=== PATIENT | female | born 1945 | race Caucasian/White ===

== ENCOUNTER 2016-04-14 06:04 | Inpatient (IN) | payer OTHER, MEDICARE ==
[~2016-04-14] VITALS: Ht 149.9 cm; Wt 94.1 kg
[~2016-04-14 06:04] MED LIST: AMLO5TAB2 PO; ATOR40TA16 PO; BENA40TA PO; CHOL5000 PO; CO Q100C9 PO; CYCL1TAB29 PO; HYDR25TA5 PO; METO50TA PO; MOBI15TA PO; OMEP20TA PO; OXYB5TAB10 PO; TRAM50TA PO
[2016-04-14] MEDS ORDERED: METOPROLOL TARTRATE 25 MG TAB PO PRN (06:30)
[2016-04-14] MEDS: LACTATED RINGER'S 1000 ML IV SCH ×2 (06:30→07:42)
[2016-04-14] MEDS ORDERED: INSULIN HUMAN REGULAR 1,000 UNITS/10 ML VIAL SQ PRN (06:30)
[2016-04-14] MEDS ORDERED: ceFAZolin 1,000 MG/NS 100 ML IV SCH ×2 (06:45)
[2016-04-14 06:49] VITALS: BP 139/70; PULSE 79; RESP 18; TEMP 98.1; O2SAT 99
[2016-04-14] MEDS ORDERED: ACETAMINOPHEN 1000 MG/100 ML VIAL IV ONE (07:28)
[2016-04-14] MEDS ORDERED: MIDAZOLAM HCL 2 MG/2 ML VIAL ONE ×2 (07:28→08:15)
[2016-04-14] MEDS ORDERED: HYDROmorphone HCL PF 2 MG/ML VIAL ONE (07:29)
[2016-04-14] MEDS ORDERED: fentaNYL CITRATE 250 MCG/5 ML AMP ONE (07:29)
[2016-04-14] MEDS ORDERED: LIDOCAINE 1%/EPINEPHrine 1:100,000 SOLN 30 ML VIAL ONE (08:06)
[2016-04-14] MEDS ORDERED: THROMBIN (TOPICAL) 5,000 UNIT VIAL ONE (08:06)
[2016-04-14] MEDS ORDERED: GENTAMICIN SULFATE 80 MG/2 ML VIAL ONE (08:06)
[2016-04-14] MEDS ORDERED: GELFOAM SIZE 100 ONE (08:06)
[2016-04-14] MEDS ORDERED: FAMOTIDINE 20 MG/2 ML VIAL ONE (08:07)
[2016-04-14] MEDS ORDERED: APREPITANT 40 MG CAP ONE (08:07)
[2016-04-14] MEDS ORDERED: METOCLOPRAMIDE HCL 10 MG/2 ML VIAL ONE (08:16)
[2016-04-14] MEDS ORDERED: SODIUM CHLORID 0.9% 500 ML IV SCH (08:30)
[2016-04-14] MEDS ORDERED: ceFAZolin INJ 1,000 MG VIAL IV ONE (11:45)
[2016-04-14] MEDS ORDERED: PROPOFOL 200 MG/20 ML AMP IV ONE (12:00)
[2016-04-14] MEDS ORDERED: ONDANSETRON HCL 4 MG/2 ML VIAL IV PUSH ONE (12:00)
[2016-04-14] MEDS ORDERED: SODIUM CHLOR 0.9% 1000 ML INJ 1,000 ML IV ONE (12:00)
[2016-04-14] MEDS ORDERED: PHENYLEPH/NS 1000 MCG/10 ML SYR IV ONE (12:00)
[2016-04-14] MEDS ORDERED: NEOSTIGMINE 3 MG/3 ML SYR IV ONE (12:00)
--- NOTE | 2016-04-14 14:10 | RADRPT ---
EXAM DATE/TIME: 04/14/2016 08:51 [place] COMPARISON: No previous studies available for comparison. INDICATIONS : Cervical fusion, C3-6. MEDICAL HISTORY : Unobtainable. SURGICAL HISTORY : Unobtainable. ENCOUNTER: Initial ACUITY: 1 day PAIN SCORE: Non-responsive. LOCATION: Neck. FINDINGS: A single lateral view of the cervical spine was performed. An anterior cervical fixation plate has be en placed from what appears to be C3-C6. CONCLUSION: Anterior cervical fusion plate with what appears to be from C3-C6 Tramaine Coello MD on April 14, 2016 at 14:08 Board Certified Radiologist. This report was verified electronically.
[2016-04-14] MEDS ORDERED: DO NOT ADM ANY ANTICOAGULANT DRUGS XX PRN (14:30)
[2016-04-14] MEDS ORDERED: SODIUM CHLORIDE 0.9% FLUSH 5 ML FLUSH IVF PRN (14:30)
[2016-04-14] MEDS ORDERED: NALOXONE HCL 0.4 MG/ML AMP IV PRN ×2 (14:30→15:15)
[2016-04-14] MEDS ORDERED: traMADol HCL 50 MG TAB PO PRN (14:30)
[2016-04-14] MEDS ORDERED: HYDROmorphone HCL PF 1 MG/ML VIAL IV PRN (15:15)
[2016-04-14] MEDS ORDERED: MORPHINE SULFATE 4 MG/ML INJ IV PRN (15:15)
[2016-04-14] MEDS ORDERED: HYDROmorphone HCL 2 MG TAB PO PRN (15:15)
[2016-04-14] MEDS: D5-1/2 NS + KCL 20 MEQ INJ 1,000 ML IV SCH (15:15)
[2016-04-14] MEDS ORDERED: DIMETHICONE/OXYBENZONE/PADMIATE LIP BALM 4.25 GM ONE (17:04)
[2016-04-14 17:30] VITALS: BP 130/73; PULSE 93; RESP 19; TEMP 95.8; O2SAT 95
[2016-04-14] MEDS: CYCLOBENZAPRINE HCL 10 MG TAB PO SCH (18:00)
--- NOTE | 2016-04-14 18:11 | PD.OP ---
Operative Report Date of Surgery: Apr 14, 2016 Preoperative Diagnosis: (1) Cervical spinal stenosis (2) Cervical disc disease with myelopathy 1. Cervical spondylosis and degenerative disc disease 2. Severe cervical stenosis 3. cervical myelopathy Postoperative Diagnosis: (1) Cervical spinal stenosis (2) Cervical disc disease with myelopathy 1. Cervical spondylosis and degenerative disc disease 2. Severe cervical stenosis 3. cervical myelopathy Procedure: 1. C3 4, C4 5, C5 6 anterior cervical discectomy, resection posterior osteophyte disc complex, bilateral foraminotomy-microtechnique 2. C3 4, C4 5, C5 6 anterior cervical interbody fusion, composite allograft bone 3. C3-C6 anterior cervical instrumentation Anesthesia: Gen. endotracheal anesthesia Surgeon: Mark Darden Sawmill Worker(s): Yuli Dickerson Operation and Findings: Findings: Severe posterior osseous disc complex with bilateral foraminal stenosis at the C3 4, C4 5, C5 6 levels. Mild C3-4 retrolisthesis. Procedure in detail: The patient was brought into the operating room and positioned in supine position on the 3080 table with the head and neck in neutral position. Perez catheter was placed. Lines were established by Anesthesia. Gen. endotracheal anesthesia was induced without difficulty, taking care not to significantly flex or extend the patient's neck during intubation and positioning. Leads for intraoperative neuro monitoring were placed and a baseline study obtained. All extremities were appropriately padded. The neck and upper chest were shaved with clippers and sterilely prepped and draped. Appropriate time-out procedure was performed with all personnel present and in agreement 1% Xylocaine with epinephrine was used for local infiltration over the incision site which was made transversely at the left C5 level and carried sharply down through the platysma muscle. The exposure was continued medial to the sternocleidomastoid muscle and carotid artery, and lateral to the trachea and esophagus. The prevertebral fascia was elevated away from the anterior longitudinal ligament with a Kitner sponge. The longus coli muscle on each side was elevated with the Alicia elevator. The self-retaining retractor was placed with the blades beneath the longus coli muscle on each side. The appropriate levels were confirmed with intraoperative C-arm and preoperative imaging studies. The microscope was brought into place and used for the remainder of the procedure including the closure. The procedure was performed sequentially at the C3 4, C4 5, then C5 6 levels. The 14 mm distraction pins were used as needed for gentle distraction during the procedure. At each level the anterior osteophyte was resected with the Leksell rongeur. The disc and annulus was incised with a 15 blade knife and discectomy performed with pituitary biopsy forceps and straight and angled curettes. The TPS drill with the 5 mm barrel bur was used to decorticate the endplates and removed the majority of the osteophyte along the anterior spinal canal as well as the right and left uncovertebral joint. The thin ligament dissector was used to free up the posterior annulus and ligament from the vertebral body margin. The remainder of the resection of the posterior annulus and ligament as well as the posterior osteophyte and bilateral uncovertebral joint was performed with the 2 and 3 mm thin footplate Kerrison rongeurs. Significant posterior osteophyte was encountered and extensively removed at each level The posterior vertebral bodies were undercut with the Kerrison rongeur and the TPS drill with the 4 mm jami bur as needed to fully decompress the anterior spinal canal. The appropriate size V G2 bone graft was then placed at each level with a good fit of the graft. The blunt nerve hook was used to probe beneath the bone graft to ensure that there was no impingement on the thecal sac or exiting nerve roots. The appropriate size Precision anterior cervical plate was then chosen and the bone screws were placed with the 14 mm fixed screws at the caudal most level and the 14 mm variable screws at the cephalad level of the decompression. In order to help reduce the subluxation at the C3 4 level, a single 14 mm variable angled screw secured to the C4 vertebral body. The screws were firmly secured and the locking cams engaged. The entire construct was checked with intraoperative C-arm and felt to be satisfactory. The 10 [place] drain was brought out through a small incision in the left lower neck and secured to the skin with nylon suture and attached to sterile suction. The closure was performed with 3-0 Vicryl running for the platysma and interrupted for the subcutaneous closure, with 4-0 Vicryl running for the subcuticular closure. A dressing of sterile Mastisol, Steri-Strips, and Primapore dressing was placed. The patient was placed into a cervical collar, and taken to recovery room in stable condition. All counts were correct at the end of the case. Estimated blood loss was 400 cc. No specimen was sent to pathology. Intraoperative neuro monitoring remained stable during the procedure. Mark Darden MD Apr 14, 2016 18:11
[2016-04-14 18:44] VITALS: O2SAT 95
[2016-04-14 20:00] VITALS: BP 141/75; PULSE 98; RESP 18; TEMP 96.6; O2SAT 94
[2016-04-14] MEDS: SODIUM CHLORIDE 0.9% FLUSH 5 ML FLUSH IVF SCH (20:24)
[2016-04-14] MEDS: METOPROLOL TARTRATE 50 MG TAB PO SCH (20:24)
[2016-04-14] MEDS: OXYBUTYNIN CHLORIDE 5 MG TAB PO SCH (20:24)
[2016-04-14] MEDS ORDERED: PROMETHAZINE INJ 25 MG/ML VIAL IM PRN (20:30)
[2016-04-14] MEDS: DOCUSATE SODIUM 100 MG CAP PO SCH (20:57)
[2016-04-14] MEDS: ONDANSETRON HCL 4 MG/2 ML VIAL IV PRN (20:57)
[2016-04-14] MEDS: traMADol HCL 50 MG TAB PO PRN (23:34)
[2016-04-15] VITALS (7 sets, daily range): BP systolic 108–163; BP diastolic 67–84; PULSE 74–114; RESP 16–19; TEMP 96.9–98.8; O2SAT 95–98
[2016-04-15] MEDS: CYCLOBENZAPRINE HCL 10 MG TAB PO SCH ×3 (01:37→16:26)
[2016-04-15] MEDS: D5-1/2 NS + KCL 20 MEQ INJ 1,000 ML IV SCH (01:37)
[2016-04-15] MEDS: traMADol HCL 50 MG TAB PO PRN ×4 (03:34→23:41)
[2016-04-15] MEDS: METOPROLOL TARTRATE 50 MG TAB PO SCH ×2 (04:54→20:39)
[2016-04-15] MEDS: ONDANSETRON HCL 4 MG/2 ML VIAL IV PRN (04:57)
[2016-04-15 07:12] LABS: AUTOMATED NEUTROPHIL # 11.3 TH/MM3 (1.8-7.7); BASOPHIL # 0.1 TH/MM3 (0-0.2); BASOPHIL % 0.9 % (0.0-2.0); EOSINOPHIL # 0.1 TH/MM3 (0-0.4); EOSINOPHIL % 0.4 % (0.0-4.0); HEMATOCRIT 34.5 % (35.0-46.0); HEMO FLAGS DIFF FINAL; LYMPH % 9.6 % (9.0-44.0); LYMPHOCYTE # 1.3 TH/MM3 (1.0-4.8); MEAN CELL VOLUME 81.6 FL (80.0-100.0); MEAN CORPUSCULAR HEMOGLOBIN 27.2 PG (27.0-34.0); MEAN CORPUSCULAR HGB CONC 33.3 % (32.0-36.0); MONO % 6.9 % (0.0-8.0); NEUT % 82.2 % (16.0-70.0); PLATELET COUNT 279 TH/MM3 (150-450); RED BLOOD COUNT 4.23 MIL/MM3 (4.00-5.30); RED CELL DISTRIBUTION WIDTH 14.7 % (11.6-17.2); WHITE BLOOD COUNT 13.8 TH/MM3 (4.0-11.0)
[2016-04-15 07:18] LABS: BICARBONATE 26.1 MEQ/L (21.0-32.0); POTASSIUM 3.6 MEQ/L (3.5-5.1)
[2016-04-15] MEDS ORDERED: NON-FORMULARY DRUG (Coenzyme Q10 (Ubidecarenone) (Co Q 10) 1 CAP) PO SCH (09:00)
[2016-04-15] MEDS ORDERED: PNEUMOCOCCAL POLYVALENT INJ 25 MCG/0.5 ML SYR IM ONE (09:00)
[2016-04-15] MEDS: LISINOPRIL 20 MG TAB PO SCH (09:44)
[2016-04-15] MEDS: DOCUSATE SODIUM 100 MG CAP PO SCH ×2 (09:45→20:39)
[2016-04-15] MEDS: OXYBUTYNIN CHLORIDE 5 MG TAB PO SCH ×2 (09:46→20:39)
[2016-04-15] MEDS: CHOLECALCIFEROL (VIT D3) 5000 UNIT CAP PO SCH (09:46)
[2016-04-15] MEDS: HYDROCHLOROTHIAZIDE 25 MG TAB PO SCH (09:47)
[2016-04-15] MEDS: PANTOPRAZOLE SOD 20 MG DELAYED RELEASE TAB PO SCH (09:57)
[2016-04-15] MEDS: DEXAMETHASONE SOD PHOS 4 MG/ML VIAL IV PUSH SCH ×2 (19:46→23:40)
[2016-04-15] MEDS: 1/2 NS + KCL 20 MEQ INJ 1,000 ML IV SCH (19:46)
[2016-04-15] MEDS: SODIUM CHLORIDE 0.9% FLUSH 5 ML FLUSH IVF SCH (20:39)
[2016-04-16] VITALS: BP 136/66; PULSE 71; RESP 16; TEMP 96.4; O2SAT 96
[2016-04-16] MEDS: CYCLOBENZAPRINE HCL 10 MG TAB PO SCH ×2 (02:00→09:10)
[2016-04-16] MEDS: DEXAMETHASONE SOD PHOS 4 MG/ML VIAL IV PUSH SCH ×2 (05:49→12:40)
[2016-04-16] MEDS: traMADol HCL 50 MG TAB PO PRN ×2 (05:49→12:40)
[2016-04-16] MEDS: 1/2 NS + KCL 20 MEQ INJ 1,000 ML IV SCH (05:50)
[2016-04-16 07:30] VITALS: BP 133/72; PULSE 106; RESP 18; TEMP 97.2; O2SAT 95
--- NOTE | 2016-04-16 08:39 | HHI.NSPN ---
History Chief Complaint: difficulty swallowing Interval History 3 level ACDF 04/14/16 for cervical myelopathy Exam Results Vital Signs Date Time Temp Pulse Resp B/P Pulse Ox O2 Delivery O2 Flow Rate FiO2 04/16/16 07:30 97.2 106 18 133/72 95 04/15/16 08:11 21 04/14/16 18:44 Nasal Cannula 2.00 Intake and Output 04/15/16 04/15/16 04/16/16 08:00 16:00 00:00 Intake Total 798 ml 600 ml 240 ml Output Total 1535 ml 710 ml Balance -737 ml -110 ml 240 ml Physical Examination The patient is awake, alert, oriented, conversant and appropriate. Recent and remote memory appear intact. Speech is clear. Neck dressing dry and intact. No edema Sensory moderate decreased to light touch hands stable versus pre op Motor WNL all extremities Akhil's positive bilateral Medical Decision Making Impression and Plan Impression: Neuro stable. Post op dysphagia Plan: D/W patient and family in room on 04/15/16 afternoon . Due to dysphagia, discharge will be held foe additional speech therapy evaluation and treatment recommendations THIS IS A DELAYED ENTRY FOR VISIT 04/15/16, LATE ENTRY DUE TO UNDERSIGNED INVOLVED IN EMERGENCY SURGERY NOT COMPLETED UNTIL AFTER MIDNIGHT ON DAY OF VISIT Mark Darden MD Apr 16, 2016 08:39
[2016-04-16] MEDS: LISINOPRIL 20 MG TAB PO SCH (09:10)
[2016-04-16] MEDS: METOPROLOL TARTRATE 50 MG TAB PO SCH (09:10)
[2016-04-16] MEDS: OXYBUTYNIN CHLORIDE 5 MG TAB PO SCH (09:10)
[2016-04-16] MEDS: HYDROCHLOROTHIAZIDE 25 MG TAB PO SCH (09:10)
[2016-04-16] MEDS: PANTOPRAZOLE SOD 20 MG DELAYED RELEASE TAB PO SCH (09:10)
[2016-04-16] MEDS: DOCUSATE SODIUM 100 MG CAP PO SCH (09:10)
[2016-04-16] MEDS: CHOLECALCIFEROL (VIT D3) 5000 UNIT CAP PO SCH (09:10)
[2016-04-16] MEDS: SODIUM CHLORIDE 0.9% FLUSH 5 ML FLUSH IVF SCH (09:13)
--- NOTE | 2016-04-16 10:22 | HHI.DCPOC ---
Discharge Care Plan Diagnosis: (1) Cervical spinal stenosis (2) Cervical disc disease with myelopathy Your Health Problems Are: Difficulty with ADL Incision/Drains Exercise Tolerance Goals to Promote Your Health * To prevent worsening of your condition and complications * To maintain your health at the optimal level Directions to Meet Your Goals Take your medications as prescribed Follow your dietary instruction Follow activity as directed Keep your appointments as scheduled Take your immunizations and boosters as scheduled If your symptoms worsen call your PCP, if no PCP go to Urgent Care Center or Emergency Room Smoking is Dangerous to Your Health. Avoid second hand smoke Call the 24-hour hour crisis hotline for domestic abuse at Mark Darden MD Apr 16, 2016 10:22
--- NOTE | 2016-04-16 10:27 | HHI.DS ---
Discharge Summary Admission Date Apr 16, 2016 at 08:28 Discharge Date: Apr 16, 2016 Admitting Diagnosis Cervical myelopathy Cervical stenosis (1) Cervical spinal stenosis Diagnosis: Secondary ICD Code: M48.02 (2) Cervical disc disease with myelopathy Diagnosis: Principal ICD Code: M50.00 Procedures 04/14/16: C3 4, C4 5, C5 6 ACDF CBC/BMP: 04/15/16 0631 04/15/16 0631 Significant Findings Laboratory Tests Test 04/15/16 06:31 White Blood Count 13.8 TH/MM3 (4.0-11.0) Hemoglobin 11.5 GM/DL (11.6-15.3) Hematocrit 34.5 % (35.0-46.0) Neutrophils (%) (Auto) 82.2 % (16.0-70.0) Neutrophils # (Auto) 11.3 TH/MM3 (1.8-7.7) Monocytes # (Auto) 1.0 TH/MM3 (0-0.9) Estimat Glomerular Filtration 73 ML/MIN (>89) Rate Random Glucose 135 MG/DL (74-106) Calcium Level 8.2 MG/DL (8.5-10.1) PE at Discharge Incision dry and intact No hoarseness of voice No neck edema Cervical collar in place Mild-moderate decrease in sensation light touch in the hands-improved compared to preoperative Mild decrease in sensation or extremities light touch-improved versus preoperative Motor 5/5 all extremities Moderate positive Akhil's response bilateral-stable versus preoperative Respiratory she is clear Cardiac regular Abdomen soft Minimal distal upper and lower extremity edema Hospital Course Patient measured for the above-noted procedure without complication. Postoperative day #1 moderate neck pain. Persistent significant dysphagia postoperatively. Neck drain removed Perez catheter removed. Patient placed on intravenous steroids and speech therapy swallowing evaluation requested and patient changed to regular inpatient status due to postoperative dysphagia requiring further evaluation and treatment prior to discharge. 04/16/16: Swallowing improving with IV steroids. Speech therapy evaluation completed. Patient cleared for discharge home with swallowing precautions and diet precautions and speech therapy instructions given. Pt Condition on Discharge: Good Discharge Disposition: Discharge Home Discharge Instructions DIET: Follow Instructions for: Soft Diet Activities to Avoid: Lifting/Bending, Strenuous Activity Continued Medications: Amlodipine (Amlodipine) 5 Mg Tab 10 MG PO DAILY Blood Pressure Management #30 TAB Benazepril (Benazepril) 40 Mg Tab 40 MG PO DAILY Blood Pressure Management #30 Ref 0 TAB Cholecalciferol (Vitamin D3) 5,000 Unit Cap 5000 UNITS PO DAILY Nutritional Supplement #1 Ref 0 BOTTLE Coenzyme Q10 (Ubidecarenone) (Co Q 10) 100 Mg Cap 1 CAP PO DAILY Cyclobenzaprine (Flexeril) 10 Mg Tab 10 MG PO TID Muscle Spasm #90 Ref 0 TAB Hydrochlorothiazide (Hydrochlorothiazide) 25 Mg Tab 25 MG PO DAILY #30 Ref 0 TAB Metoprolol Tartrate (Metoprolol Tartrate) 50 Mg Tab 50 MG PO BID #60 TAB Omeprazole (Omeprazole) 20 Mg Tab 20 MG PO DAILY #30 Ref 0 TAB Oxybutynin (Ditropan) 5 Mg Tab 5 MG PO Q12HR Urinary Symptom Managemen #60 Ref 0 TAB Tramadol (Tramadol) 50 Mg Tab 50 MG PO Q8H PRN PAIN Ref 0 TAB Discontinued Medications: Atorvastatin (Atorvastatin) 40 Mg Tab 40 MG PO HS Cholesterol Management #30 Ref 0 TAB Meloxicam (Mobic) 15 Mg Tab 15 MG PO DAILY Arthritis pain Ref 0 TAB Mark Darden MD Apr 16, 2016 10:26
--- NOTE | 2016-04-16 10:30 | HHI.NSPN ---
History Chief Complaint: difficulty swallowing Interval History 3 level ACDF 04/14/16 for cervical myelopathy Exam Results Vital Signs Date Time Temp Pulse Resp B/P Pulse Ox O2 Delivery O2 Flow Rate FiO2 04/16/16 07:30 97.2 106 18 133/72 95 04/15/16 08:11 21 04/14/16 18:44 Nasal Cannula 2.00 Intake and Output 04/15/16 04/15/16 04/16/16 08:00 16:00 00:00 Intake Total 798 ml 600 ml 240 ml Output Total 1535 ml 710 ml Balance -737 ml -110 ml 240 ml Physical Examination The patient is awake, alert, oriented, conversant and appropriate. Recent and remote memory appear intact. Speech is clear. Incision dry and intact No hoarseness of voice No neck edema Cervical collar in place Mild-moderate decrease in sensation light touch in the hands-improved compared to preoperative Mild decrease in sensation or extremities light touch-improved versus preoperative Motor 5/5 all extremities Moderate positive Akhil's response bilateral-stable versus preoperative Respiratory she is clear Cardiac regular Abdomen soft Minimal distal upper and lower extremity edema Medical Decision Making Impression and Plan Impression: Neuro stable. Post op dysphagia Plan: D/W patient again this morning. Postoperative dysphagia improving with steroids. Continue soft diet Completion of speech therapy evaluation today prior to discharge. Patient otherwise is anticipated stable for discharge today. Wound care, diet, activity, swallowing instructions and signs and symptoms to watch for fully discussed Mark Darden MD Apr 16, 2016 10:30
[2016-04-28] MEDS ORDERED: FLUO10TA (11:11)
[2016-04-28] MEDS ORDERED: TIZA4TAB (11:11)
[2016-04-28] MEDS ORDERED: VALS1TAB63 (11:11)
[2016-04-28] MEDS ORDERED: ATOR40TA16 (11:11)
[2016-04-28] MEDS ORDERED: MELO-1 (11:11)
[2016-04-30] MEDS ORDERED: TRAM50TA PO (10:57)
[2016-07-10] MEDS ORDERED: MELO7.5T4 PO (13:29)
[2016-07-10] MEDS ORDERED: LUMBAR BACK BRA1 MIS (14:41)
== END 2016-04-16 13:30 | disposition home or self-care (01) | DRG 982 ==
LOC: HSDC 06:04 → EDSTATUS 08:30 → N06B 15:30 → OBSVTOIN 04-16 08:28
PROVIDERS: ADMIT Neurological Surgery; ATTEND Neurological Surgery
PROC: 0RG20K0 Fusion of 2 or more Cervical Vertebral Joints with Nonautologous Tissue Substitute, Anterior Approach, Anterior Column, Open Approach (ICD-10-PCS; 2016-04-14)
PROC: 0RT30ZZ Resection of Cervical Vertebral Disc, Open Approach (ICD-10-PCS; principal; 2016-04-14 08:18)
DX: R13.19 Other dysphagia (principal); M47.12 Other spondylosis with myelopathy, cervical region; M50.01 Cervical disc disorder with myelopathy, high cervical region; M50.021 Cervical disc disorder at C4-C5 level with myelopathy; M48.02 Spinal stenosis, cervical region; M50.022 Cervical disc disorder at C5-C6 level with myelopathy; M54.41 Lumbago with sciatica, right side
CPT/HCPCS: 72020; 76000; 80048; 85025; 86850; 86900; 86901; 94150; C1713; G0378; G8987-GP; G8988-GP; J0131; J0690; J1100; J1170; J1580; J2250; J2370; J2405; J2710; J2765; J3010; J3480; J7030; J7120; J8501; L0172